=== PATIENT | female | born 1965 | race Two or more races ===

== ENCOUNTER 2020-05-13 08:44 | Emergency (ER) | payer OTHER ==
[~2020-05-13] VITALS: Ht 162.6 cm; Wt 54.4 kg
== END 2020-05-13 10:44 | disposition home or self-care (01) ==
LOC: ER 08:44
DX: S20.211A Contusion of right front wall of thorax, initial encounter (principal); W18.39XA Other fall on same level, initial encounter; Y93.89 Activity, other specified; Y92.830 Public park as the place of occurrence of the external cause; Y99.8 Other external cause status

== ENCOUNTER 2021-09-23 08:34 | Outpatient (CLI) | payer OTHER | END 2021-09-23 08:45 | disposition home or self-care (01) | LOC: MAMO-SONO 08:34 | PROVIDERS: ATTEND General Practice | DX: N64.59 Other signs and symptoms in breast (principal); Z12.31 Encounter for screening mammogram for malignant neoplasm of breast; N60.11 Diffuse cystic mastopathy of right breast ==

== ENCOUNTER 2023-01-20 15:58 | Outpatient (CLI) | payer OTHER | END 2023-01-20 16:06 | disposition home or self-care (01) | LOC: RAD 15:58 | PROVIDERS: ATTEND General Practice | DX: R91.8 Other nonspecific abnormal finding of lung field (principal) ==

== ENCOUNTER 2023-01-24 14:03 | Outpatient (CLI) | payer OTHER | END 2023-01-24 14:07 | disposition home or self-care (01) | LOC: NUCLEAR 14:03 | PROVIDERS: ATTEND Family Medicine Geriatric Medicine | DX: M81.0 Age-related osteoporosis without current pathological fracture (principal) ==

== ENCOUNTER → 2023-01-26 14:38 | Outpatient (CLI) | payer OTHER | END | disposition home or self-care (01) | LOC: EKG 01-24 14:16 | PROVIDERS: ATTEND General Practice | DX: Z13.6 Encounter for screening for cardiovascular disorders (principal) ==

== ENCOUNTER 2025-03-05 09:17 | Outpatient (CLI) | payer BC | END 2025-03-05 09:21 | disposition home or self-care (01) | LOC: SONOGRAMA 09:17 | PROVIDERS: ATTEND Family Medicine Geriatric Medicine | DX: R11.0 Nausea (principal); R10.11 Right upper quadrant pain ==

== ENCOUNTER → 2025-03-06 10:58 | Outpatient (CLI) | payer BC | END | disposition home or self-care (01) | LOC: NUCLEAR 10:58 | DX: M81.0 Age-related osteoporosis without current pathological fracture (principal) ==